=== PATIENT | female | born 1985 | race Caucasian/White ===

== ENCOUNTER 2016-05-02 11:04 | Day surgery (SDC) | payer BC ==
[2016-05-02] VITALS (18 sets, daily range): BP systolic 107–131; BP diastolic 60–84; PULSE 72–98; RESP 14–20; TEMP 97.9–98.4; O2SAT 93–100; Ht 172.7 cm; Wt 119.0 kg
[~2016-05-02] VITALS: Ht 172.7 cm; Wt 119.0 kg
[~2016-05-02 11:04] MED LIST: ERTAPENEM 1 G in NORMAL SALINE 100 ML IV ONE; LIDOCAINE 1% (10mg/ml) 2ml SDV INJ ONE; LR 1,000 ML IV SCH
--- NOTE | 2016-05-02 12:37 | ANESPREOP ---
Anesthesia Record Date and Time DATE: 05/02/16 TIME: 12:35 Proposed Surgical Procedure ROBOTIC LAP JOSE J Allergies: Coded Allergies: No Known Allergies (Unverified , 05/02/16) Ht/Wt/BMI Height: 5 ' 8.00 " Weight: 119.000 kg BMI: 39.9 kg/m2 Medications Inpatient Medications Current Medications Medications (Trade) Dose Ordered Sig/Keren Start Time Stop Time Status Last Admin Dose Admin Lactated Ringer's (Lactated Ringers) 1,000 ml @ 30 mls/hr Q24H 05/02/16 07:00 No Active Prescriptions or Reported Meds Currently on Beta Bailey: No Medical/Surgical History Anesthesia PMH: Reports: Asthma ( A CHILD), Pneumonia ( HX OF LAST 2010), Reflux, Denies: *Angina, *Diabetes, *Dyspnea, *Hypertension, *ME, Anesthesia Reactions (NO AIRWAY ISSUES-N&V), Arthritis, CHF, COPD, CVA/Stroke/TIA, Cancer, Cardiac Arrythmia, Clotting Problems, Glaucoma, Hepatitis, Hiatal Hernia, Malignant Hyperthermia, Pacemaker, Renal Disease, Seizures, Sleep Apnea, Thyroid Disease, Tuberculosis Smoking Status: Current every day smoker Has pt. smoked today?: No Use Chewing Tobacco?: No Substance Use Type: does not use Alcohol Intake: none Last Drink: hours (ago) (8) HX of Last Menstrual Period: APRIL 2016 Past Surgical History Orthopedic Surgeries: No Abdominal Surgeries: No Genitourinary Surgeries: No Cardiac Surgeries: No Endocrine Surgeries: No Reproductive Surgeries: Yes - Neurological Surgeries: No Ear Surgeries: No Nose Surgeries: No Throat Surgeries: Yes Other Surgeries: Yes - LYMPH NODES REMOVED FROM AROUND THYROID Family Hx of Anesthesia Advers: other (slow to wake, nausea) Hx of Motion Sickness: Yes Pertinent Findings Test 05/02/16 11:14 Urine Test Negative (NEGATIVE) Physical Exam Respiratory: Lungs clear Cardiovascular: FOUND Regular rate, rhythm Airway Assessment Mallampati Score: II TMD: 3 Fingerbreadths Neck Extension: Good Overall Assessment: May Be Diff Mask Vent., May Be Diff Intubation ASA: 2 Plan Anesthesia Plan: GETA Discussion Discussed risks/options/alternatives of anesthesia and questions answered. Patient consents. Nursing pain assessment noted. Present: Family Member, Parent Attestation Statement Prior to the delivery of any anesthetic medication, I examined the patient, developed the plan, obtained the patient's consent and discussed the risk and benefits of the procedure with the patient/guardian. JOSÉ CARTY CRNA May 02, 2016 12:37
[2016-05-02] MEDS ORDERED: SCOPOLAMINE 1.5 MG PATCH TD ONE (12:45)
[2016-05-02] MEDS ORDERED: BUPIVACAINE 0.25%/EPI 1:200,000 30ml SDV ONE (12:46)
[2016-05-02] MEDS ORDERED: SALINE FLUSH 10ml SYRINGE ONE (12:51)
[2016-05-02] MEDS ORDERED: DEXAMETHASONE 4mg/ml - 1ml INJECTION ONE (12:52)
[2016-05-02] MEDS ORDERED: ONDANSETRON 4mg/2ml INJECTION ONE ×2 (12:52→14:03)
[2016-05-02] MEDS ORDERED: ROCURONIUM 50mg/5ml INJECTION IV ONE (12:54)
[2016-05-02] MEDS ORDERED: LIDOCAINE (2%) 100 MG/5 ML PF SYRINGE IV ONE (12:54)
[2016-05-02] MEDS ORDERED: FENTANYL 100mcg/2ml INJECTION ONE ×2 (13:09→14:01)
[2016-05-02] MEDS ORDERED: MIDAZOLAM 2mg/2ml INJECTION ONE (13:09)
[2016-05-02] MEDS ORDERED: KETAMINE 500mg/10ml INJECTION ONE (13:09)
[2016-05-02] MEDS ORDERED: METOCLOPRAMIDE 10mg/2ml INJECTION ONE (14:04)
[2016-05-02] MEDS ORDERED: NEOSTIGMINE 10mg/10ml INJECTION ONE (14:13)
[2016-05-02] MEDS ORDERED: GLYCOPYRROLATE 0.4mg/2ml INJECTION ONE (14:13)
[2016-05-02] MEDS ORDERED: LR 1,000 ML IV SCH (14:20)
--- NOTE | 2016-05-02 14:23 | GSPOSTPN ---
Procedure Procedure Date: May 02, 2016 Surgeon: Jim Assisting Surgeon: Reed Patiño Anesthesia: Local, GETA ASA: 2 Procedure Robotic assisted laparoscopic cholecystectomy with Firefly imaging GS Diagnosis Postop Diagnosis Biliary dyskinesia Complications Complications Estimated Blood Loss See Anesthesia Record. Vital Signs See Anesthesia and PACU record. THI PATIÑO APRN, ANGÉLICAS May 02, 2016 14:23
[2016-05-02] MEDS ORDERED: IBUP-2067 PO (14:26)
[2016-05-02] MEDS ORDERED: HYDR-4246 PO (14:26)
[2016-05-02] MEDS ORDERED: MORPHINE SULFATE 4 MG SYRINGE IV PRN (14:30)
[2016-05-02] MEDS ORDERED: KETOROLAC 30mg/ml INJECTION IV PRN (14:30)
[2016-05-02] MEDS ORDERED: HYDROCODONE/APAP 5 mg/325 mg TABLET PO PRN (14:30)
[2016-05-02] MEDS ORDERED: METOCLOPRAMIDE 10mg/2ml INJECTION IV PRN (14:30)
[2016-05-02] MEDS ORDERED: IBUPROFEN 600 MG TABLET PO PRN (14:30)
[2016-05-02] MEDS ORDERED: ONDANSETRON 4mg/2ml INJECTION IV PRN (14:30)
--- NOTE | 2016-05-02 15:15 | NUR ---
ADMISSION PATIENT ADMITTED TO ROOM 134 AT THIS TIME VIA CART AND PACU STAFF. PATIENT ABLE TO TRANSFER SELF FROM CART TO SURGICAL UNIT. PATIENT A/OX3. DENIES PAIN, N/V, CHEST PAIN, AND SOA. INCISIONS CLEAN, DRY, INTACT AND COVERED WITH DERMABOND. BED IN THE LOWEST POSITION, CALL LIGHT WITHIN REACH, SIDE RAILS UPX2, AND BED ALARM ON. WILL CONTINUE TO MONITOR.
--- NOTE | 2016-05-02 18:10 | NUR ---
DISCHARGE PT DISCHARGED TO HOME AT THIS TIME IN THE COMPANY OF AN ADULT. PT AMBULATED TO THE ER ENTRANCE WITH THE SUPERVISION OF STAFF. DISCHARGE INSTRUCTION INCLUDING DIET, ACTIVITY, MEDICATIONS, FOLLOW UP APPOINTMENT, REPORTABLE S/S AND DI FOR CHOLECYSTECTOMY GIVEN AND REVIEWED WITH PATIENT. PT VERBALIZED UNDERSTANDING OF THESE INSTRUCTIONS AND HAD NO FURTHER QUESTIONS. IVL DISCONTINUED. ARMBAND REMOVED. PERSONAL BELONGINGS RETURNED.
--- NOTE | 2016-05-03 11:27 | OPNOTEF ---
DATE OF SERVICE 05/02/2016 SURGEON Jas Fernandez MD ENVIRONMENT[employer]ORATION PLANNER Reed Patiño APRN PREOPERATIVE DIAGNOSIS Biliary dyskinesia. POSTOPERATIVE DIAGNOSIS Biliary dyskinesia. PROCEDURE Robotic-assisted laparoscopic cholecystectomy with use of Firefly biliary imaging. ANESTHESIA General endotracheal. EBL/FLUIDS Please see chart. BRIEF HISTORY/INDICATIONS Mrs. Shultz is a 30-year-old female whom I recently saw in my office a result of her history for intermittent abdominal pain. The patient was found to have abnormal hepatobiliary scan revealing a decreased ejection fraction. It was felt the patient's abdominal pain was a result of biliary dyskinesia. It was therefore recommended to the patient that she undergo surgical intervention. Patient presents today to undergo robotic-assisted laparoscopic cholecystectomy. For completeness please refer to notes included in the patient's chart. FINDINGS Upon laparoscopy the liver edge was smooth without nodularities. Gallbladder itself was not markedly abnormal. The small bowel, colon, peritoneum which were visualized were within normal limits. DESCRIPTION OF PROCEDURE After informed consent was obtained the patient was brought to the operative suite and placed on the table in supine fashion. The abdomen was prepped and draped in sterile fashion. Formal timeout was then completed. 0.25% Marcaine with epinephrine was injected just beneath the level of the umbilicus. A 2-cm curved incision was then made through the area of analgesia. Dissection was carried down to the deep subcuticular tissues to the underlying fascia. Fascia was then grasped with two Vickie clamps and retracted anteriorly. A 1-cm incision was made between the two Vickie clamps. Hemostat was then introduced into the fascial incision and gently spread. U-stitch was placed with 0-Vicryl through the fascial opening. A 12-mm port was then placed through the fascial opening and pneumoperitoneum was established to a patient pressure of 15 mmHg utilizing carbon dioxide. Next, two additional 8-mm ports were placed within the right upper quadrant and left lower quadrant as well as an additional 5-mm assist port through the right lateral abdominal wall. Each port site was preinjected with 0.25% Marcaine and placed under direct visualization. The abdominal cavity was explored via the laparoscope. Findings were as noted above. Next, the fundus of the gallbladder was grasped by my sales support assistant and retracted in a cephalad fashion. An additional grasping pean was placed upon the infundibular portion of the gallbladder and retracted in a lateral and slightly caudad fashion to provide exposure to the triangle of Calot. Dissection was begun high upon the infundibulum of the gallbladder and dissection was continued until the critical view of safety had been obtained and the only remaining structures coming forth from the infundibulum of the gallbladder were that of the cystic duct and cystic artery. Firefly biliary imaging was performed during the dissection of the triangle of Calot which did aid in the identification of the cystic duct. The cystic duct did fluoresce quite well. The posterior aspect of the infundibulum was completely freed from the underlying liver bed fossa. Once the critical view of safety had been obtained, a single Hem-o-cherelle clip was placed upon the cystic artery adjacent to the gallbladder itself. An additional Hem-o-Cherelle clip was placed proximally. An additional Hem-o-Cherelle clip was placed upon the cystic duct adjacent to the infundibulum of the gallbladder. An additional Hem-o-Cherelle clip was placed proximally. The cystic duct and cystic artery were divided between the two Hem-o-Cherelle clips. The gallbladder was begun to be dissected off the liver bed fossa. About snf up on the gallbladder fossa the patient was found to have a somewhat aberrant small artery entering into the posterior aspect of the gallbladder. A small amount of bleeding began to occur. This vessel was dissected out and a small Hem-o-Cherelle clip as well as an additional small metallic clip was placed upon this bleeding vessel. This small aberrant vessel was then divided against the gallbladder wall once the clips had been placed just proximally adjacent to the gallbladder fossa. The gallbladder was continued to be dissected off the remainder liver bed fossa without difficulty. Next, irrigation was performed and the gallbladder fossa was found to be completely hemostatic in nature. The previously placed Hem-o-Cherelle clips upon the cystic duct and cystic artery remained to be intact. There was no evidence of bleeding from this small aberrant vessel along the mid portion of the gallbladder fossa out laterally. All irrigant was suctioned until clear. The robot was undocked. The gallbladder was then removed utilizing a laparoscopic retrieval bag through the infraumbilical port site. Pneumoperitoneum was released. Pneumoperitoneum was reestablished and the liver was retracted upward with a handheld 5-mm grasper. Gallbladder fossa was again inspected and found to be completely hemostatic. No evidence for bleeding was present. Remaining ports were removed under visualization. Pneumoperitoneum was then once again released and the remaining camera port was removed. Previously placed U-stitch was then secured imbricating the fascia at the infraumbilical port site. All skin incisions were closed in a subcuticular fashion with 4-0 Monocryl. Dermabond was placed overlying the incisions. Patient is in the process of awakening from her anesthetic and will be sent back to the recovery room once deemed in stable condition. Additionally, it should be noted that Reed Patiño APRN, was present throughout the entire case and played a pivotal role in providing assistance and exposure during the course of the procedure. VALENTIN
--- NOTE | 2016-05-06 13:25 | NUR ---
CM THIS CM PLACED FOLLOW UP DISCHARGE CALL, PT REPORTS NO CONCERNS NO NEEDS.
== END 2016-05-02 18:10 | disposition home or self-care (01) ==
LOC: SRG 11:04 → SCU 11:04
PROVIDERS: ATTEND Surgery
DX: K81.1 Chronic cholecystitis (principal); K82.8 Other specified diseases of gallbladder; I87.2 Venous insufficiency (chronic) (peripheral); F17.210 Nicotine dependence, cigarettes, uncomplicated; Z79.1 Long term (current) use of non-steroidal anti-inflammatories (NSAID)
CPT/HCPCS: 47562; 81025; 94664; J0330; J1100; J1335; J2250; J2405; J2710; J2765; J3010; J7030; J7050; J7120; S0020; S2900

== ENCOUNTER 2016-05-07 15:58 | Emergency (ER) | payer BC ==
[~2016-05-07] VITALS: Ht 172.7 cm; Wt 120.8 kg
[~2016-05-07 15:58] MED LIST changes: -ERTAPENEM 1 G in NORMAL SALINE 100 ML IV ONE; +HYDR-4246 PO; +IBUP-2067 PO; -LIDOCAINE 1% (10mg/ml) 2ml SDV INJ ONE; -LR 1,000 ML IV SCH
--- OUTSIDE RECORDS SUMMARY | 2016-05-07 16:01 | XMS REPORT | Continuity of Care Document ---
Author Author [facility] Organization [facility] Address Unknown Phone Unavailable Support Name Relationship Address Phone YEHUDA BERRY MD Caregiver [address] [place] [address] [place] [address] Unavailable ROMIE SIMPSON FACS, MD Caregiver [address] [place] [address] [place] [address] Unavailable GARETT JOHNSTON Next Of Kin [address] [place] [address] Insurance Providers Guarantor Elsie Johnston Address [address] [place] [address] Email [email or web address] [facility] Policy Number [id number] Subscriber's Name Elsie Johnston Relationship 18 Self Group Number [id number] Advance Directives Directive Response Recorded Date/Time Ordered Resuscitation Status Full Code 05/01/16 4:15pm Resuscitation Documents on File No 05/02/16 11:43am DPOA for Healthcare Only No 05/02/16 11:43am Living Will No 05/02/16 11:43am Problems Active Problems Medical Problem Onset Date Status Cellulitis and abscess of foot Unknown Acute Cellulitis and abscess of foot Unknown Acute Complete spontaneous Unknown Acute Miscarriage Unknown Acute Tinea pedis Unknown Acute Medications Current Home Medications Medication Dose Units Route Directions Days Qty Instructions Start Date Hydrocodone/Acetaminophen ([place] 5-325 Tablet) 5-325 Tablet 1-2 Tab Oral Every 5 Hours as needed for Pain 40 Tablet 05/02/16 Ibuprofen 600 Mg Tablet 600 Mg Oral Every 6 Hours as needed for Pain 10 Days 40 Tablet 05/02/16 Past Home Medications Medication Directions Ordered Status Cephalexin (Keflex) 500 Mg Capsule, 1 Cap Oral Three Times A Day 03/20/14 Discontinued Miconazole Nitrate 30 Gm Cream..g., 0 Topically Three Times A Day 03/20/14 Discontinued Naproxen Sodium (Aleve) 220 Mg Tablet, 440 Mg Oral Twice Daily With Meals 04/02 Discontinued Social History Social History Problem Response Recorded Date/Time Onset Date Status Reason for Hospitalization LAPARASCOPIC CHOLECYSTECTOMY 05/02/2016 3:54pm Not Applicable Not Applicable Chewing Tobacco Status No 05/01/2016 1:10pm Not Applicable Not Applicable Hx Substance Use No 05/01/2016 1:10pm Not Applicable Not Applicable Hx Alcohol Use No 05/01/2016 1:10pm Not Applicable Not Applicable Has the pt used tobacco in the last 12 months Yes 05/01/2016 1:10pm Not Applicable Not Applicable Tobacco Usage none 03/20/2014 5:57am Not Applicable Not Applicable Query Response Start Date Stop Date Smoking Status Current every day smoker Hospital Discharge Instructions Instructions: Care Instructions: I was in the hospital because (patient own words): galbladder removal Discharge Diet: regular Discharge Activity: Do not drive, operate machinery for 24 hours after surgery or while taking pain medication. No lifting more than 25 pounds for 4 weeks. Follow Up Appointments: Follow up with Alicia Patiño APRN/Dr. Simpson on May 20 at 10:15 am Pending Lab / Results: Will review at f/u apt Expected Signs/Symptoms: tenderness at trocar/inicision sites, bruising at incision sites Notify Physician If: 1. Call your surgeon if you are having problems relating to your surgery at [phone]. 2. Problems such as: Temp above 101.5 degrees You develop redness, excessive swelling of the incision, increasing pain or excessive foul smelling drainage. 3. If the office is closed, call [facility] at [phone] and have your Surgeon paged. During Business Hours:: Call your surgeon at at [phone]. After Business Hours:: If the office is closed, call [facility] at [phone] and have your Surgeon paged. Pain Management/Treatment: Follow prescriptions as prescribed Wound/Incision Care: Leave incision open to air. Do not rub or pick off the glue. May shower. Condition at time of discharge: Good Plan of Care Discharge Date 05/02/16 6:10pm Instructions/Education Provided Laparoscopic Cholecystectomy (DC) Prescriptions See Medication Section Functional Status Query Response Date Recorded Mobility Status Ambulatory May 02, 2016 3:23pm Assistive Devices None May 02, 2016 3:23pm Activity Limitations None May 02, 2016 3:23pm Feeding Ability Independent May 02, 2016 3:23pm Toileting Ability Independent May 02, 2016 3:23pm Grooming Ability Independent May 02, 2016 3:23pm Dressing Ability Independent May 02, 2016 3:23pm Driving Ability Independent May 02, 2016 3:23pm Housework Ability Independent May 02, 2016 3:23pm Meal Preparation Ability Independent May 02, 2016 3:23pm Stair Climbing Ability Independent May 02, 2016 3:23pm Ability to complete ADL's impeded by No change May 02, 2016 3:23pm Cognitive/Perceptual Impairments None May 02, 2016 3:23pm Preferred Method of Learning Hands on May 02, 2016 3:23pm Allergies, Adverse Reactions, Alerts No known allergies. Immunizations Query Response on File Recorded Date/Time Hx Influenza Vaccination No 05/01/16 1:10pm Hx Pneumococcal Vaccination Y 2011 05/01/16 1:10pm Hx Influenza Vaccination No 05/01/16 1:10pm Vital Signs Acute Vital Signs Vital Response Date/Time Temperature (Fahrenheit) 98.0 deg F (96.8 - 99.1) 05/02/2016 3:21pm Temperature (Calculated Celsius) 36.16725 degrees C (36.0 - 37.3) 05/02/2016 3:21pm Temperature Source Oral 05/02/2016 3:21pm Pulse Rate (adult) 82 bpm (60 - 100) 05/02/2016 5:21pm Respiratory Rate 16 breaths/min (10 - 20) 05/02/2016 5:21pm O2 Sat by Pulse Oximetry 96 % (90 - 100) 05/02/2016 5:21pm Oxygen Delivery Method Room Air 05/02/2016 5:21pm Oxygen Delivery Method Room Air 05/02/2016 4:40pm Oxygen Flow Rate 2.00 L/min 05/02/2016 2:55pm Blood Pressure 113/67 mm Hg 05/02/2016 5:21pm Blood Pressure Source Automatic Cuff 05/02/2016 5:21pm Height (Feet) 5 feet 05/02/2016 11:06am Height (Inches) 8.00 inches 05/02/2016 11:06am Weight (Kilograms) 119.000 kg 05/02/2016 11:06am Body Mass Index (BMI) 39.9 05/02/2016 11:06am Results No known relevant diagnostic tests, laboratory data and/or discharge summary. Procedures Procedure Status Date Provider(s) Hepatobil syst image w/drug Completed 03/27/16 Chorionic gonadotropin assay Completed 03/27/16"TECHNETIUM TC-99M MEBROFENIN, DIAGNOSTIC, PER STUDY D Completed "INJECTION, SINCALIDE, 5 MICROGRAMS" Completed 03/27/16 Robot-assisted cholecystectomy Completed 05/02/16 ROMIE SIMPSON MD, FACS , CWS Encounters Encounter Location Arrival/Admit Date Discharge/Depart Date Attending Provider Departed Surgical Day Care [facility] 05/02/16 11:04am 05/02/16 6 :10pm ROMIE SIMPSON FACS CWS MD Registered Clinic [facility] 03/27/16 12:24pm JUAN TRIANA
[2016-05-07 16:09] VITALS: Ht 172.7 cm; Wt 120.8 kg
--- NOTE | 2016-05-07 16:21 | NUR ---
PROVIDER DR. CURRAN AT BEDSIDE FOR EXAM.
[2016-05-07] MEDS ORDERED: NO ROUTINE MEDS (16:27)
--- NOTE | 2016-05-07 16:29 | ERPDOC ---
Departure Disposition Decision Date: May 07, 2016 Disposition Decision Time: 18:30 Disposition: 01 DISCHARGED HOME, SELF-CARE Impression Impression Impression: Primary Impression: Postoperative pain Severity: Moderate Condition: Improved Seen By: Physician only Referrals: YEHUDA BERRY MD (Family) Patient Instructions: How to Stop Smoking (ED) Problems/Meds/Labs Reviewed?: Yes Medications reviewed and manag: Yes Additional Instructions: Please follow up with your surgeon next week. Follow up with her primary care provider sooner if pain recurs. Follow up care ordered?: Yes Mental Status: Alert, Oriented HPI - Back Pain General Chief Complaint: Back Pain or Injury Stated Complaint: POST SURGERY ISSUES Time Seen by Provider: 16:20 HPI - Back Pain Initial Comments 30-year-old female presents with shortness of breath, status post cholecystectomy. Surgery was done on Thursday and she had some right upper quadrant abdominal pain postop, but no lung pain. In the last 24 hours she has developed pain with deep breathing and a sensation of shortness of breath. She' s had no fever, no chills. No dysuria or hesitancy or urgency. No abnormal odor to urine. She has had a slight cough develop in the last day. Allergies: Coded Allergies: No Known Allergies (Unverified , 05/07/16) Past History Past Medical History Pt denies signifigant PMH Surgical History Reproductive/: Family History Family PMH: FOUND: [place], diabetes, hypertension Vaccines Hx Influenza Vaccination: No Hx Pneumococcal Vaccination: Yes (2010) Social History Smoking Status: Current every day smoker Does patient use chewing tobac: No Substance Use Type: does not use Last Drink: hours (ago) Sexuality: male partner Record Review Pertinent history updated: Yes Review of Systems Pulmonary Respiratory: see HPI GI Upper Abdomen: see HPI Physical Exam General General Nourishment: well nourished, well developed, appears stated age General Body Habitus: well groomed Vitals and Pain First Documented Vital Signs Date Time Temp Pulse Resp B/P Pulse Ox O2 Delivery O2 Flow Rate FiO2 05/07/16 16:09 97.9 98 16 145/79 100 Room Air Weight: Kilograms: 120.800 Height (feet): 5 Height (inches): 8.00 Triage Pain Scale: Normal Exams: Neck: Full range of motion, without adenopathy, JVD, bruits or thyromegaly Chest/Resp: Clear all feliciano, with good airflow, and symmetry bilaterally CV: Regular rate and rhythm, without murmur or gallop, Pulses 2+ all extremities, capillary refill, <2 seconds all ext., no pedal edema noted Neurologic: Patient is alert, and oriented, cranial nerves, motor/sensory/ cerebellar, exams w/o gross deficits, to observation Psychiatric: Patient exhibits, appropriate attention, emotion and affect Abdomen (brief) Comments Bowel sounds 4, abdomen soft, truly nontender except immediately over surgical site. No signs of cellulitis at wound site. Integumentary (brief) Integumentary Brief: FOUND: pink, warm Differential Diagnoses Considering: Biliary Colic, Diverticulitis, Ovarian Cyst, Ovarian Abscess, Ovarian Torsion, Pancreatitis, Pneumothorax, Pyelonephritis, UTI, Volvulus Progress Results/Orders Orders Procedure Category Date Status Time Iv Lock (Ed Only) EDM 05/07/16 Transmitted 16:34 Nothing By Mouth (Ed EDM 05/07/16 Transmitted Only) 16:34 Cbc W/Auto LAB 05/07/16 Complete Diff-Reflex Manual 16:34 Cmp - Comprehensive LAB 05/07/16 Complete Metabolic 16:34 Lipase LAB 05/07/16 Complete 16:34 LAB 05/07/16 Complete Qualitative, Urine 16:34 Ua, Dip Wreflex LAB 05/07/16 Complete Microsc & Mental Retardation Aide 16:34 Normal Saline (Normal PHA 05/07/16 Complete Saline Iv) 16:[address] 05/07/16 Taken 16:34 KUB RAD 05/07/16 Taken 16:34 Iohexol (Omnipaque) PHA 05/07/16 Complete 17:11 Normal Saline (Ns) PHA 05/07/16 Complete 17:11 Saline Flush (Iv PHA 05/07/16 Complete Flush) 17:11 Lab Results Laboratory Tests Test 05/07/16 16:54 05/07/16 17:04 White Blood Count 9.6T/MM3 Red Blood Count 5.03M/MM3 Hemoglobin 13.4GM/DL Hematocrit 41.5% Mean Corpuscular Volume 82.5UM3 Mean Corpuscular Hemoglobin 26.6UUG Mean Corpuscular Hemoglobin Concent 32.3GM/DL RDW Standard Deviation 41.3FL Platelet Count 275T/MM3 Mean Platelet Volume 11.0UM3 Immature Granulocyte % (Auto) 0.1% Neutrophils (%) (Auto) 64.6% Lymphocytes (%) (Auto) 27.2% Monocytes (%) (Auto) 5.1% Eosinophils (%) (Auto) 2.8% Basophils (%) (Auto) 0.2% Absolute Immature Granulocyte (auto 0.01T/MM3 Absolute Neutrophils (auto) 6.2T/MM3 Absolute Lymphocytes (auto) 2.6T/MM3 Absolute Monocytes (auto) 0.5T/MM3 Absolute Eosinophils (auto) 0.3T/MM3 Absolute Basophils (auto) 0.0T/MM3 Turbidity < 20 Sodium Level 145MEQ/L Potassium Level 4.3MEQ/L Chloride Level 106MEQ/L Carbon Dioxide Level 26MEQ/L Anion Gap 13MEQ/L Blood Urea Nitrogen 6.0MG/DL Creatinine 0.7MG/DL Glomerular Filtration Rate Calc 98 BUN/Creatinine Ratio 9RATIO Glucose Level 110MG/DL Calculated Osmolality 278MOSM/KG Calcium Level 9.4MG/DL Total Bilirubin 0.40MG/DL Icterus Index < 2 Aspartate Amino Transf (AST/SGOT) 19U/L Alanine Aminotransferase (ALT/SGPT) 33U/L Alkaline Phosphatase 61U/L Total Protein 7.5G/DL Albumin 4.1G/DL Globulin 3.4G/DL Albumin/Globulin Ratio 1.2RATIO Lipase 97U/L Chemistry Specimen Hemolysis 19 Urine Collection Type Voided-not cc-midstr Urine Color Yellow Urine Turbidity Clear Urine pH 6.5 Urine Specific Lohman <=1.005 Urine Protein Negative Urine Glucose (UA) Negative Urine Ketones Negative Urine Blood Negative Urine Nitrite Negative Urine Bilirubin Negative Urine Urobilinogen 0.2EU/DL Urine Leukocyte Esterase Negative Urinalysis Comment Microscopic not ind. Urine Test Negative Medications Current ED Medications Sodium Chloride (Normal Saline IV) 1,000 ml @ 1,000 mls/hr Q1H ONCE IV Last administered on 05/07/16t 17:05; Start 05/07/16 at 16:34; Stop 05/07/16 at 17:33 ; Status DC Iohexol 1 bottle 1 bottle STK-MED ONCE .ROUTE ; Start 05/07/16 at 17:11; Stop at 17:12; Status DC Sodium Chloride (NS) 100 ml @ As Directed STK-MED ONCE .ROUTE ; Start 05/07/16 at 17:11; Stop 05/07/16 at 17:12; Status DC Sodium Chloride (Iv Flush) 10 ml STK-MED ONCE .ROUTE ; Start 05/07/16 at 17:11; Stop 05/07/16 at 17:12; Status DC Progress Progress CT PE is negative, CBC CMP are negative UA is negative. Patient has no signs of acute emergency postop. She is appropriate to discharge home, she does have pain pills at home and does not need any more. We did discuss that this may be something and development that hasn't shown up in which case she'll need to return if her symptoms worsen. She'll follow-up with her surgeon as well when he gets back into town next week or with her primary care provider. MICHAEL CURRAN MD May 07, 2016 16:29
[2016-05-07] MEDS ORDERED: NORMAL SALINE 1,000 ML IV ONE (16:34)
[2016-05-07 17:08] LABS: BASOPHILS % (AUTO) 0.2 % (0-2); EOSINOPHILS # (AUTO) 0.3 T/MM3 (0-0.5); EOSINOPHILS % (AUTO) 2.8 % (0-4); HCT - HEMATOCRIT 41.5 % (36-46); HGB - HEMOGLOBIN 13.4 GM/DL (12-16); IMMATURE GRANULOCYTE # (AUTO) 0.01 T/MM3 (0.00-0.03); IMMATURE GRANULOCYTE % (AUTO) 0.1 % (0.0-0.5); LYMPHOCYTES # (AUTO) 2.6 T/MM3 (1-4.8); LYMPHOCYTES % (AUTO) 27.2 % (23-45); MEAN CORPUSCULAR HGB 26.6 UUG (26-34); MEAN CORPUSCULAR HGB CONC(MCHC 32.3 GM/DL (31-37); MEAN CORPUSCULAR VOLUME 82.5 UM3 (80-100); MONOCYTES # (AUTO) 0.5 T/MM3 (0-0.8); MONOCYTES % (AUTO) 5.1 % (0-9.0); NEUTROPHILS #(AUTO)-ABSOLUTE 6.2 T/MM3 (1.8-7.7); NEUTROPHILS % (AUTO) 64.6 % (33-66); RED BLOOD COUNT 5.03 M/MM3 (4.00-5.20); WBC - WHITE BLOOD COUNT 9.6 T/MM3 (4.5-11.0)
[2016-05-07] MEDS ORDERED: IOHEXOL 350 MG/ML 75ml INJECTION ONE (17:11)
[2016-05-07] MEDS ORDERED: SALINE FLUSH 10ml SYRINGE ONE (17:11)
[2016-05-07] MEDS ORDERED: NORMAL SALINE 100 ML ONE (17:11)
[2016-05-07 17:13] LABS: ALBUMIN 4.1 G/DL (3.5-5.0); ALBUMIN/GLOBULIN RATIO 1.2 RATIO (1.1-2.2); ALKALINE PHOSPHATASE 61 U/L (38-126); ALT (SGPT) 33 U/L (9-52); ANION GAP 13 MEQ/L (5-15); AST (SGOT) 19 U/L (14-36); BUN/CREATININE RATIO 9 RATIO (6-26); CALCIUM 9.4 MG/DL (8.4-10.2); CHLORIDE 106 MEQ/L (98-107); CO2 - CARBON DIOXIDE 26 MEQ/L (22-30); CREATININE 0.7 MG/DL (0.7-1.2); GLOMERULAR FILTRATION RATE 98; GLUCOSE 110 MG/DL (65-110); LIPASE 97 U/L (23-300); POTASSIUM 4.3 MEQ/L (3.6-5); SODIUM 145 MEQ/L (134-144); TOTAL PROTEIN 7.5 G/DL (6.3-8.2)
[2016-05-07 17:14] LABS: BLOOD, URINE NEGATIVE (NEGATIVE); COLOR,URINE YELLOW (YELLOW); LEUKOCYTE ESTERASE ,URINE NEGATIVE (NEGATIVE); NITRITE,URINE NEGATIVE (NEGATIVE); UROBILINOGEN,URINE 0.2 EU/DL (NORMAL)
--- NOTE | 2016-05-07 17:51 | NUR ---
RETURN PT RETURNED FROM RADIOLOGY BY W/C AT THIS TIME.
--- NOTE | 2016-05-07 18:10 | NUR ---
STATUS PT SITTING UP COMFORTABLY IN CART. DENIES NEEDS AT THIS TIME. CALL LIGHT WITHIN REACH, VS STABLE, WILL CONTINUE TO MONITOR.
--- NOTE | 2016-05-07 18:29 | NUR ---
PROVIDER DR. CURRAN AT BEDSIDE TO SPEAK WITH PT.
[2016-05-07 18:44] VITALS: BP 121/71; PULSE 89; RESP 16; TEMP 97.9; O2SAT 100
--- NOTE | 2016-05-07 18:44 | NUR ---
DISCHARGE WRITTEN INSTRUCTIONS REVIEWED AND SENT WITH PT. PT VERBALIZES UNDERSTANDING OF DI, DENIES QUESTIONS. PT AMBULATES OUT OF ER WITH STEADY GAIT AT THIS TIME.
--- NOTE | 2016-05-08 08:36 | DI ---
Indication: ITS.REASON: dyspnea, postop PROCEDURE: CTA PULMONARY EMBOLI: Encounter: Initial Comparison: None Technique: Axial CT pulmonary angiographic phase images were performed through the chest after the administration of intravenous contrast. Coronal and Sagittal MIP reconstructed images were created and reviewed. Automated Exposure Control and Iterative Reconstruction dose reducing techniques were utilized. Contrast: Omnipaque 350 72 mL Findings: Pulmonary arteries: Exam is diagnostic to the subsegmental pulmonary arterial level. No filling defects identified to suggest a pulmonary embolus. Other findings: Lungs are clear. No pleural effusion or pneumothorax. The central airways are patent. No axillary or mediastinal adenopathy. Heart size is normal. No pericardial effusion. The upper abdomen shows no acute findings. Impression: No pulmonary embolus or acute disease process seen. There is a preliminary report by [facility]. .
--- NOTE | 2016-05-08 08:37 | DI ---
Indication: ITS.REASON: abd pain, post op PROCEDURE: KUB: Encounter: Initial Comparison: None Findings: The bowel gas pattern is nonobstructive and nonspecific. Gas is seen in nondilated small and large bowel to the level of the rectum. Moderate stool is seen throughout the colon. The bony structures are grossly unremarkable. Contrast material in the renal collecting system from the patient's recent CT study. Impression: Nonobstructive nonspecific bowel gas pattern. .
== END 2016-05-07 18:44 | disposition home or self-care (01) ==
LOC: ED 15:58
DX: G89.18 Other acute postprocedural pain (principal); R10.11 Right upper quadrant pain; R06.02 Shortness of breath
CPT/HCPCS: 71275; 74000; 80053; 81003; 81025; 83690; 85025; 96360; 99284; J7030; J7050; Q9967

== ENCOUNTER 2017-04-09 04:34 | Observation (INO) ==
[2017-04-09] MEDS ORDERED: SALINE FLUSH 10ml SYRINGE IV PRN (04:46)
[2017-04-09] MEDS ORDERED: LIDOCAINE 1% (10mg/ml) 2mL INJ PF SDV ID ONE (04:46)
[2017-04-09] MEDS ORDERED: CALCIUM GLUCONATE 4.65mEq/10ml INJECTION IV PRN (04:46)
[2017-04-09] MEDS ORDERED: MAGNESIUM SULFATE 6gm PREMIX 6 GM/50 ML BAG IV ONE (04:46)
[2017-04-09] MEDS ORDERED: BETAMETHASONE 30 MG/5 ML INJECTION IM SCH (05:00)
[2017-04-09] MEDS: MAGNESIUM SULFATE DRIP 20 GM/500 ML BAG IV SCH ×2 (05:53→15:45)
[2017-04-09 06:23] VITALS: BP 122/65; PULSE 91; RESP 18; TEMP 97.7; O2SAT 99
[2017-04-09 06:27] VITALS: BMI 41.8
--- NOTE | 2017-04-09 13:12 | Progress Note ---
OB PP Progress Note Free Text - Date Date: 04/09/17 - Progress Note Progress Note: Pt reports feeling well, tolerating MagSO4. FHTs reactive, Cat 1. Plan to continue for 12 hours, repeat ANCS. Q&A
[2017-04-09] MEDS ORDERED: ACETAMINOPHEN 500 MG TABLET PO PRN (13:51)
== END 2017-04-09 18:00 | disposition home or self-care (01) ==
LOC: INF.THER 04:34 → MC 04:34 → SRG 04:34 → MC 04:40 → INF.THER 18:00 → UNDODISOB 18:00 → UNDODEPCLI 04-30 10:30
PROVIDERS: ADMIT Obstetrics & Gynecology; ATTEND Obstetrics & Gynecology

== ENCOUNTER 2017-06-18 10:00 | Inpatient (IN) ==
[2017-06-18] MEDS ORDERED: FAMOTIDINE PB 20 MG/50 ML BAG IV ONE (10:11)
[2017-06-18] MEDS ORDERED: CITRIC ACID/SODIUM CITRATE 30ml PO ONE (10:11)
--- OUTSIDE RECORDS SUMMARY | 2017-06-18 10:14 | External Medical Summary | Continuity of Care Document ---
:1985 Author Organization [facility] Address [address] [place], [place] [id number] Phone Care Team Providers Name Role Phone Reji Wang MD, FAAFP Unavailable Unavailable Allergies, Adverse Reactions, Alerts Substance Reaction Severity Status No Known Drug Allergies Unknown Active Medications Medication Instructions Dosage Effective Dates Status Comments (start - stop) Aspir-81 81 mg take 1 tablet by oral 81 MG - Active tablet,delayed route every day release (unknown - Active strength) Tylenol 325 mg tablet take 3 tablet by ORAL 975 MG - Active route every 4 days as needed Problems Condition Effective Dates (start - stop) Clinical Status Suprvsn of preg w history of pre-term - labor, third trimester Gestational htn w/o significant - proteinuria, third trimester Maternal care for cervical - incompetence, third trimester 35 weeks gestation of - Irregular Menses Encntr for rn gynecology exam (general) - (routine) w abnormal findings Encntr for rn gynecology exam (general) (routine) w/o abn findings Pap Smear Screening, Cervix - Encounter for test, result - negative Supervision of other high risk - pregnancies, second trimester Gestatnl htn w/o significant - proteinuria, second trimester Previous Low Transverse - 20 weeks gestation of - Suprvsn of preg w history of pre-term - labor, third trimester Supervision of other high risk - pregnancies, third trimester Previous Low Transverse - Maternal care for cervical - incompetence, third trimester Nicotine dependence, other tobacco product, in remission Complete or unsp spontaneous without complication Encntr for rn gynecology exam (general) - (routine) w abnormal findings Pap Smear Screening, Cervix Pap Smear Screening, Cervix Encounter for test, result - positive Carbuncle, unspecified - Supervision of other high risk - pregnancies, second trimester 21 weeks gestation of - Secondary amenorrhea Encounter for test, result positive Secondary oligomenorrhea Recurrent loss Encounter for test, result - positive Irregular Menses Recurrent loss - Complete or unsp spontaneous without complication Complete or unsp spontaneous - without complication Complete or unsp spontaneous - without complication Suprvsn of preg w history of pre-term - labor, first trimester Supervision of other high risk - pregnancies, first trimester Previous Low Transverse - 13 weeks gestation of - Suprvsn of preg w history of pre-term - labor, first trimester Supervision of other high risk - pregnancies, first trimester Previous Low Transverse - Encntr screen for infections w sexl - mode of transmiss Encounter for screening for oth - infec/parastc diseases Encounter for screening of - mother 9 weeks gestation of - Suprvsn of preg w history of pre-term - labor, second tri Supervision of other high risk - pregnancies, second trimester Previous Low Transverse - 20 weeks gestation of - Suprvsn of preg w history of pre-term - labor, second tri Supervision of other high risk - pregnancies, second trimester Previous Low Transverse - 22 weeks gestation of - Suprvsn of preg w history of pre-term - labor, second tri Supervision of other high risk - pregnancies, second trimester Gestatnl htn w/o significant - proteinuria, second trimester Previous Low Transverse - Encounter for suprvsn of normal - , second trimester 26 weeks gestation of - Suprvsn of preg w history of pre-term - labor, second tri Suprvsn of preg w history of pre-term - labor, second tri Suprvsn of preg w history of pre-term - labor, second tri Suprvsn of preg w history of pre-term - labor, second tri Supervision of other high risk - pregnancies, second trimester Previous Low Transverse - 16 weeks gestation of - Suprvsn of preg w history of pre-term - labor, second tri Suprvsn of preg w history of pre-term - labor, second tri Suprvsn of preg w history of pre-term - labor, second tri Suprvsn of preg w history of pre-term - labor, second tri Suprvsn of preg w history of pre-term - labor, second tri Suprvsn of preg w history of pre-term - labor, third trimester Supervision of other high risk - pregnancies, third trimester Previous Low Transverse - Maternal care for cervical - incompetence, third trimester Suprvsn of preg w history of pre-term - labor, third trimester Supervision of other high risk - pregnancies, third trimester Previous Low Transverse - 35 weeks gestation of - Suprvsn of preg w history of pre-term - labor, third trimester Supervision of other high risk - pregnancies, third trimester Previous Low Transverse - Maternal care for cervical - incompetence, third trimester Suprvsn of preg w history of pre-term - labor, third trimester Supervision of other high risk - pregnancies, third trimester Previous Low Transverse - 28 weeks gestation of - Suprvsn of preg w history of pre-term - labor, third trimester Previous Low Transverse - Maternal care for cervical - incompetence, third trimester labor without delivery, third - trimester Suprvsn of preg w history of pre-term - labor, third trimester Supervision of other high risk - pregnancies, third trimester Previous Low Transverse - 31 weeks gestation of - Suprvsn of preg w history of pre-term - labor, third trimester Suprvsn of preg w history of pre-term - labor, third trimester Supervision of other high risk - pregnancies, third trimester Previous Low Transverse - Maternal care for cervical - incompetence, third trimester Suprvsn of preg w history of pre-term - labor, third trimester Gestational htn w/o significant - proteinuria, third trimester Previous Low Transverse - 28 weeks gestation of - Suprvsn of preg w history of pre-term - labor, third trimester 32 weeks gestation of - Suprvsn of preg w history of pre-term - labor, third trimester Supervision of other high risk - pregnancies, third trimester Previous Low Transverse - 37 weeks gestation of - Supervision of other high risk - pregnancies, second trimester Previous Low Transverse - Frequency of micturition - 27 weeks gestation of - Supervision of other high risk - pregnancies, third trimester Previous Low Transverse - Maternal care for cervical - incompetence, third trimester 34 weeks gestation of - Tobacco Abuse - Active Intramural Uterine Leiomyoma - Active Procedures Procedure Date TRANSVAGINAL US, OBSTETRIC Ultrasnd preg uterus, flwup/repeat Results Test Name Date and Time Measure Units Reference Range Abnormal Flag Comments Unknown Advance Directives Directive Yes / No Effective Date File Name Unknown Encounters Encounter Practice Location Reason(s) Diagnoses Date Provider Care Team Description For Visit Members Shahida De Luna of preg w May-2 Sha Referring In Womens history of 5-201 Fang. Provider: Chaparrita BALDERAS, pre-term labor, [address] [facility] [place], [address], [facility] [place] of other high , [facility] Dr ROTH, risk pregnancies, 120, Benji 120, [id number], third Khanh Cassidy, trimesterPrevious [place] ROTH, tel:[phone] Low Transverse [phone]. [id number] C-Mgypzza33 weeks , [place]. tel:+316 gestation of tel:[phone] [facility] De Luna of preg w May- Sha Referring In Womens history of 8-201 Fang. Provider: Chaparrita BALDERAS, pre-term labor, [address] third [facility] [place], [address], [facility], ion of other high Dr [facility] Dr ROTH, risk pregnancies, 120, Benji 120, [id number], third Khanh Cassidy, trimesterPrevious [place] ROTH, tel:[phone] Low Transverse [phone]. [id number] C-SectionMaternal , [place]. tel:+316 care for cervical tel: [phone] incompetence, [phone] third trimester [facility] De Luna of preg w May- Sha Referring In Womens history of 1-201 Fang. Provider: Chaparrita BALDERAS, pre-term labor, [address] third [facility] [place], [address], [facility], ion of other high Dr [facility] Dr ROTH, risk pregnancies, 120, Benji 120, [id number], third Khanh Cassidy, trimesterPrevious [place], tel: Low Transverse [phone]. C-Gzzanwh10 weeks , [place]. tel: gestation of tel: [phone] [facility] Suprvsn of preg w Apr-1 Sha Referring In Womens Ultrasound history of 1-201 Fang. Provider: Health PA, pre-term labor, [address] third [facility] [place], 700 1522, trimesterGestatio [facility], nal htn w/o , [facility] Dr ROTH, significant 120, Benji 120, [id number], proteinuria, Khanh Cassidy, [place] third [place], tel: trimesterMaternal [phone]. care for cervical , [place]. tel: incompetence, tel: [phone] third [id number] weeks gestation of [facility] Supervision of Apr-0 Sha Referring In Womens other high risk 4-201 Fang. Provider: Health PA, pregnancies, [address] third [facility] [place], 700 1522, trimesterPrevious [facility], Low Transverse , [facility] Dr ROTH, C-SectionMaternal 120, Benji 120, [id number], care for cervical Khanh Cassidy, incompetence, [place] ROTH, tel: third [id number] [phone]. weeks gestation , [place]. tel: of tel: [phone] [facility] Suprfranciscon of preg w Mar-2 Sha Referring In Womens history of 8-201 Fang. Provider: Health PA, pre-term labor, [address] third [facility] [place], 700 1522, trimesterSupervis [facility] [place], ion of other high , [facility] Dr ROTH, risk pregnancies, 120, Benji 120, [id number], third Khanh Cassidy, trimesterPrevious [place], tel: Low Transverse [phone]. C-SectionMaternal , [place]. tel: care for cervical tel: [phone] incompetence, [phone] third trimester [facility] Suprvsn of preg w Mar-2 Sha Referring In Womens history of 2-201 Fang. Provider: Chaparrita BALDERAS, pre-term labor, [address] third trimester [facility] [place], [address], [place] [address], [facility] Dr ROTH, 120, Benji 120, [id number], Khanh Cassidy, [facility], [place], tel: [phone]. , [place]. tel: tel: [phone] [facility] Suprfranciscon of preg w Mar-2 Sha Referring In Womens history of 1-201 Fang. Provider: Chaparrita BALDERAS, pre-term labor, 8 [address] third [facility] [place], 700 1522, trimesterSupervis [facility] [place], ion of other high , [facility] Dr ROTH, risk pregnancies, 120, Benji 120, [id number], third Khanh Cassidy, trimesterPrevious [place], [place], tel: Low Transverse [phone]. C-SectionMaternal , [place]. tel: care for cervical tel: [phone] incompetence, [phone] third trimester [facility] Suprvsn of preg w Mar-2 Sha Referring In Womens Ultrasound history of 1-201 Fang. Provider: Chaparrita BALDERAS, pre-term labor, 8 [address] third [facility] [place], 700 1522, weeks gestation [facility] [place], of , [facility] Dr ROTH, 120, Benji 120, [id number], Khanh Cassidy, [place], [place], tel: [phone]. , [place]. tel: tel: [phone] [facility] Suprvsn of preg w Mar-1 Sha Referring In Womens history of 4-201 Fang. Provider: Chaparrita BALDERAS, pre-term labor, 8 [address] third [facility] [place], 700 1522, [facility], ion of other high , [facility] Dr ROTH, risk pregnancies, 120, Benji 120, [id number], third Khanh Cassidy, [place] trimesterPrevious [place] ROTH, tel: Low Transverse [phone]. C-Iyjqavz54 weeks , [place]. tel: gestation of tel: [phone] [facility] Suprvsn of preg w Mar-0 Sha Referring In Womens history of 7-201 Fang. Provider: Health ANDREY, pre-term labor, 8 [address] third [facility] [place], 700 1522, [facility], ion of other high , [facility] Dr ROTH, risk pregnancies, 120, Benji 120, [id number], third Khanh Cassidy, [place] trimesterPrevious [place] ROTH, tel: Low Transverse [phone]. C-SectionMaternal , [place]. tel: care for cervical tel: [phone] incompetence, [phone] third trimester [facility] Suprvsn of preg w Feb-2 Sha Referring In Womens history of 8-201 Fang. Provider: Chaparrita BALDERAS, pre-term labor, 8 [address] third [facility] [place], 700 1522, trimesterPrevious [facility] [place], Low Transverse , [facility] Dr ROTH, C-SectionMaternal 120, Benji 120, [id number], care for cervical Khanh Cassidy, [place] incompetence, [place] ROTH, tel: third [phone]. trimesterPreterm , [place]. tel: labor without tel: [phone] delivery, third [phone] trimester [facility] Suprvsn of preg w Feb-2 Sha Referring In Womens history of 1-201 Fang. Provider: Chaparrita BALDERAS, pre-term labor, 8 [address] third [facility] [place], 700 1522, [facility], ion of other high , [facility] [place] Dr ROTH, risk pregnancies, 120, Benji 120, [id number], third Khanh Cassidy, trimesterPrevious [place]OTH, tel: Low Transverse [phone]. C-Ltpwxoq42 weeks , [place]. tel: gestation of tel: [phone] [facility] Suprvsn of preg w Mar-2 Sha Referring In Womens Ultrasound history of 1-201 Fang. Provider: Health PA, pre-term labor, 8 [address] third [facility] [place], 700 1522, trimesterGestatio [facility] [place], nal htn w/o , [facility] Dr ROTH, significant 120, Benji 120, , proteinuria, Khanh Cassidy, [place] third [place] ROTH, tel: trimesterPrevious [phone]. Low Transverse , [place]. tel: C-Ozsxrgx33 weeks tel: [phone] gestation of [id number] [facility] Supervision of Sha Referring In Womens other high risk 4-201 Fang. Provider: Health PA, pregnancies, 8 [address] second [facility] [place], 700 1522, trimesterPrevious [facility] [place], Low Transverse , [facility] Dr ROTH, C-SectionFrequenc 120, Benji 120, [id number], y of Khanh Cassidy, [id number] [place] ROTH, tel:+2 weeks gestation [phone]. of , [place]. tel: tel: [phone] [facility] Suprvsn of preg w b-0 Sha Referring In Womens history of 8-201 Fang. Provider: Health PA, pre-term labor, 8 [address] second [facility] [place], 700 [address], [place] [address], [facility] Dr ROTH, 120, Benji 120, , Khanh Cassidy, [place] ROTH, tel: [phone]. , [place]. tel: tel:[phone] Shahida Cassidy Suprvsn of preg w Sha Referring In Womens history of 1-201 Fang. Provider: Chaparrita BALDERAS, pre-term labor, 8 [address] Box [facility], 700 [address], triSupervision of [facility] [place], other high risk Dr, [facility] Dr ROTH, pregnancies, 120, Benji 120, [id number], second Khanh Cassidy, trimesterGestatnl [place] ROTH, tel: htn w/o [phone]. [facility] , [place]. tel: proteinuria, tel: [phone] second [phone] trimesterPrevious Low Transverse C-SectionEncounte r for suprvsn of normal , second zxaugjyhn18 weeks gestation of [facility] Suprvsn of preg w Sha Referring In Womens history of 5-201 Fang. Provider: Chaparrita BALDERAS, pre-term labor, 8 [address] [facility], [address], [place] [address] [address] Tulio, [facility] [place], 120, [place] , Khanh, [facility] 120, [place] Khanh ROTH, tel: [phone] [place], , [place]. [id number]. tel: tel: [phone] Shahida Cassidy Suprvsn of preg w Sha Referring In Womens history of 8-201 Fang. Provider: Chaparrita BALDERAS, pre-term labor, 8 [address] Box [facility], [address] 15[address], [place] [address], [facility] Dr ROTH, 120, Benji 120, [id number], Khanh Cassidy, [place] R[place], tel: [phone]. , [place]. tel: tel: [phone] Shahida Cassidy Suprvsn of preg w Sha Referring In Womens history of 1-201 Fang. Provider: Chaparrita BALDERAS, pre-term labor, 8 [address] PO Box [facility] [address], [place] [address], [facility] Dr ROTH, 120, Benji 120, , Khanh Cassidy, [place], [place], tel: [phone]. , [place]. tel: tel: [phone] Shahida Cassidy Suprvsn of preg w Reed-0 Sha Referring In Womens history of 4-201 Fang. Provider: Chaparrita BALDERAS, pre-term labor, 8 [address] second [facility] [place], 700 1522, triSupervision of [facility] [place], other high risk Dr, [facility] Dr ROTH, pregnancies, 120, Benji 120, , second Khanh Cassidy, trimesterPrevious [place], tel: Low Transverse [phone]. C-Fhytjvd15 weeks , [place]. tel: gestation of tel: [phone] [facility] Carbalbinale, Reed-0 Sha Referring In Womens unspecifiedSuperv 2-201 Fang. Provider: Chaparrita BALDERAS, ision of other [address] high risk [facility] [place], 700 1522, [facility] , [facility] Dr ROTH, weeks 120, Benji 120, , gestation of Khanh Cass[place], [place], tel: [phone]. , [place]. tel: tel: [phone] Shahida Cassidy Suprvsn of preg w Dec-2 Sha Referring In Womens history of 7-201 Fang. Provider: Chaparrita BALDERAS, pre-term labor, 7 [address] Box second [facility] [place], 700 1522, [facility] Dr Tulio, [facility] Dr ROTH, 120, Benji 120, , Khanh Cassidy, [place], [place], tel: [phone]. , [place]. tel: tel: [phone] Shahida Cassidy Supervision of Dec-2 Sha Referring In Womens other high risk 1-201 Fang. Provider: Chaparrita BALDERAS, pregnancies, 7 [address] second [facility] [place], 700 1522, trimesterGestatnl [facility] [place], htn w/o Dr, [facility] Dr ROTH, significant 120, Benji 120, , proteinuria, Khanh Cassidy, [place] second [place], [place], tel: trimesterPrevious [phone]. Low Transverse , [place]. tel: C-Swkaywk26 weeks tel: [phone] gestation of [id number] [facility] Suprvsn of preg w Dec-2 Sha Referring In Womens Ultrasound history of 1-201 Fang. Provider: Health ANDREY, pre-term labor, 7 [address] [facility], [address] [address], triSupervision of [facility] [place], other high risk Dr, [facility] Dr ROTH, pregnancies, 120, Benji 120, , second Khanh Cassidy, [place] trimesterPrevious [place], [place], tel: Low Transverse [phone]. C-Tesdsts93 weeks , [place]. tel: gestation of tel: [phone] [facility] Suprvsn of preg w Dec-2 Sha Referring In Womens history of 0-201 Fang. Provider: Chaparrita BALDERAS, pre-term labor, 7 [address] second [facility], [address], [place] [address], [facility] Dr ROTH, 120, Benji 120, , Khanh Cassidy, [place], [place], tel: [phone]. , [place]. tel: tel: [phone] [facility] Suprvsn of preg w Dec-1 Sha Referring In Womens history of 3-201 Fang. Provider: Chaparrita BALDERAS, pre-term labor, 7 [address] [facility], 700 15[address], [place] [address], [facility] Dr ROTH, 120, Benji 120, [id number], Khanh Cassidy, [place], [place], tel: [phone]. , [place]. tel: tel:+[phone] [facility] Suprvsn of preg w Dec-0 Sha Referring In Womens history of 6-201 Fang. Provider: Chaparrita BALDERAS, pre-term labor, 7 [address] second [facility] Medical Sha L, 1522, [facility] [place], , [facility] [place], 120, Center [id number], Khanh, [facility] 120, [place] Khanh ROTH, tel:[phone] [place], , [place]. [id number]. tel: tel: [phone] [facility] Suprvsn of preg w Nov-2 Sha Referring In Womens history of 9-201 Fang. Provider: Chaparrita BALDERAS, pre-term labor, 7 [address] second [facility] [place], 700 15[address], [facility]Supervision of [facility], other high risk Dr, [facility] Dr ROTH, pregnancies, 120, Benji 120, , second Khanh Cassidy, trimesterPrevious [place], [place], tel: Low Transverse [phone]. C-Teplhaz70 weeks , [place]. tel: gestation of tel: [phone] [facility] Suprvsn of preg w Nov-0 Sha Referring In Womens history of 6-201 Fang. Provider: Chaparrita BALDERAS, pre-term labor, 7 [address] Box first [facility] [place], 700 1522, [facility], ion of other high , [facility] Dr ROTH, risk pregnancies, 120, Benji 120, [id number], first Khanh Cassidy, trimesterPrevious [place] ROTH, tel: Low Transverse [phone]. C-Bkxznao86 weeks , [place]. tel: gestation of tel: [phone] [facility] Suprvsn of preg w Oct- Sha Referring In Womens history of 1-201 Fang. Provider: Chaparrita BALDERAS, pre-term labor, 7 [address] first [facility] [place], 700 1522, [facility], ion of other high , [facility] Dr ROHT, risk pregnancies, 120, Benji 120, [id number], first Khanh Cassidy, trimesterPrevious [place]OTH, tel:+2 Low Transverse [phone]. C-SectionEncntr , [place]. tel: screen for tel: [phone] infections w sexl [id number] mode of transmissEncounte r for screening for oth infec/parastc diseasesEncounter for screening of mother9 weeks gestation of [facility] Secondary Sep-2 Sha Referring In Womens amenorrheaEncount 2-201 Fang. Provider: Health PA, er for 7 [address] test, result [facility] [place], 700 1522, positive Center [address], [facility] Dr ROTH, 120, Benji 120, , Khanh Cassidy, [place], tel: [phone]. , [place]. tel: tel: [phone] Shahida Cassidy Recurrent Sep-1 Tang Referring In Womens loss 3-201 Selina. Provider: Health [place], [address] [facility] [place], 700 [address], [facility] [address], [facility] Dr ROTH, 120, Benji 120, [id number], Khanh Cassidy, [place], tel:+ [phone]. , [place]. tel: tel: [phone] Shahida Cassidy Secondary Sep-1 Clyde Referring In Womens oligomenorrheaRec 1-201 Selina. Provider: Health ANDREY, urrent 7 [address] lossEncounter for [facility] [place], 700 1522, test, [facility] [address], result positive , [facility] Dr ROTH, 120, Benji 120, , Khanh Cassidy, [place], tel: [phone]. , [place]. tel: tel: [phone] Shahida Cassidy Irregular Reed-3 Clyde Referring In Womens MensesEncntr for 0-201 Selina. Provider: Chaparrita BALDERAS, rn gynecology exam 7 [address] (general) [facility] [place], 700 1522, (routine) w [place] [address], [facility] Dr ROTH, findingsEncntr 120, Benji 120, , for rn gynecology exam Khanh Cassidy, (general) [place], tel: (routine) w/o abn [phone]. findingsPap Smear , [place]. tel: Screening, tel: [phone] CervixEncounter [id number] for test, result negative [facility] Complete or unsp Apr-1 Sha Referring In Womens spontaneous 4-201 Fang. Provider: Chaparrita BALDERAS, without 6 [address] complication [facility] [place], [address] 15[address], [place] [address], [facility] Dr ROTH, 120, Benji 120, , Khanh [place], [place], tel:[phone]. , [place]. tel: tel: [phone] [facility] Complete or unsp Apr-0 Sha In Womens spontaneous 6-201 Fang. Chaparrita BALDERAS, without 6 700 [address] Box complication Medical 1522, [place] [address], [facility] [place], 120, , [facility] [place], tel:[phone] , [place]. tel: [phone] [facility] Irregular Menses Apr-0 Sha In Womens 4-201 Fang. Chaparrita BALDERAS, [address] [place], [place], [address], , [facility] [place], tel:[phone] , [place]. tel: [phone] [facility] Complete or unsp Reed-2 Octavia Referring In Womens spontaneous 0-201 Katt. Provider: Chaparrita BALDERAS, without [address] complication Medical [place], [address], [facility] [place], 120, [place] 120, , [place], [place], [place], tel: [phone]. , [place]. tel: tel: [phone] [facility] Nicotine Reed-0 Octavia Referring In Womens dependence, other 6-201 Katt. Provider: Chaparrita BALDERAS, tobacco product, [address] in [facility], 15[address], [facility] [address] or unsp , [place], [place], spontaneous 120, [place], [id number], [place], [address]. [place] complicationEncnt [place], tel: tel: r for rn gynecology exam [phone] (general) , [place]. (routine) w tel: abnormal [phone] findingsPap Smear Screening, CervixPap Smear Screening, CervixEncounter for test, result positive [facility] Jul-0 Sha Referring In Womens 8-201 Fang. Provider: Chaparrita BALDERAS, [address] [facility], [facility], Center [address] [place], [place], [address], [employer], [id number], [place], [address]. [place], tel: tel: [phone] , [place]. tel: [phone] Family History Family Member Diagnosis Age At Onset No family history of Ovarian Cancer No family history of Venous Thrombosis Maternal Grandfather Lung Cancer No family history of Colon Cancer No family history of Uterine Cancer No family history of Breast Cancer No family history of Pulmonary Embolism Paternal Grandmother Cardiovascular Disease Mother Thyroid Disorder Maternal Grandmother Thyroid Disorder Immunizations Vaccine Date Status Comments Tdap completed Source: New Immunization Record Influenza, injectable, completed Source: New Immunization Record quadrivalent, preservative free, 3 yrs or older Payers Payer name Insurance type Covered green party ID Authorization(s) [employer] [place] [id number] [employer] [id number] [employer] [id number] [employer] [place] [id number] Social History Type Description Quantity Date Captured Unknown Vital Signs Date / Height Weight BMI Pulse Blood Temperature Respiratory Body Head BMI Time: Rate Pressure Rate Surface Circumference percentile Area Unknown Chief Complaint And Reason For Visit Unknown Chief Complaint And Reason For Visit Reason For Referral Reason For Referral Unknown Plan Of Care Date Type Action Status Goal Tobacco cessation counseling completed Goal Tobacco cessation counseling completed Goal Tobacco cessation counseling completed Goal Lifestyle education regarding completed diet Goal Lifestyle education regarding completed diet Goal Tobacco cessation counseling completed Goal Lifestyle education regarding completed diet Goal Tobacco cessation counseling completed Appointment Elsie Shultz BOOKED Appointment Elsie Shultz [facility] R C/S BOOKED Appointment Elsie Shultz BOOKED Future Order: Radiology Order Ultrasound OB Follow-up ([id number]) Ordered Future Order: Radiology Order Ultrasound OB, Transvaginal Ordered ([id number]) Future Order: Lab Order Pap Smear With HPV Reflex If Ordered ASCUS ([id number]) Future Order: Radiology Order Complete OB Ultrasound > 14 Ordered Weeks ([id number]) Future Order: Radiology Order Ultrasound OB Follow-up ([id number]) Ordered Future Order: Radiology Order Ultrasound OB, Transvaginal Ordered ([id number]) Future Order: Radiology Order Ultrasound OB, Transvaginal Ordered ([id number]) Future Order: Radiology Order Ultrasound OB Follow-up ([id number]) Ordered Date Type Problem Goal Intervention Status Start Date Unknown. History Of Present Illness Encounter Date Complaint History Of Present Illness This patient has no known history of present illness Functional Status Encounter Date Functional Assessment Cognitive Assessment Unknown Medications Administered Medication Instructions Dosage Effective Dates (start - stop) Status Comments Drug Treatment Unknown Instructions Date Instruction Additional Information HIV and other routine tests risk factors identified by history anticipated course of care nutrition and weight gain counseling, special diet toxoplasmosis precautions (cats / raw meat) sexual activity exercise indications for ultrasound influenza vaccine environmental / work hazards travel tobacco (ask, advise, assess, assist and arrange) use of any medications (including supplements, vitamins, herbs, OTC drugs) smoking counseling domestic violence seat belt use childbirth classes / hospital facilities hospital registration genetic testing new ob handbook risks Zika virus assessment & precautions Giving encouragement to exercise Related to Body mass index 40.0-44.9 Giving encouragement to exercise Related to Body mass index 40.0-44.9 Lifestyle education regarding diet Related to Body mass index 40.0-44.9 Giving encouragement to exercise Related to Body mass index 40.0-44.9 Lifestyle education regarding diet Related to Body mass index 40.0-44.9 Giving encouragement to exercise Related to Body mass index 39.0 - 39.9 Lifestyle education regarding diet Related to Body mass index 39.0-39.9
--- OUTSIDE RECORDS SUMMARY | 2017-06-18 10:15 | External Medical Summary | Continuity of Care Document ---
:1985 Author Organization [facility] Address [address] [place], [place] [id number] Phone Care Team Providers Name Role Phone Reji Wang MD, FAAFP Unavailable Unavailable Allergies, Adverse Reactions, Alerts Substance Reaction Severity Status No Known Drug Allergies Unknown Active Medications Medication Instructions Dosage Effective Dates Status Comments (start - stop) Aspir-81 81 mg take 1 tablet by oral 81 MG - Active tablet,delayed release route every day 17-alphahydroxy 1 injection weekly IM - Active Progesterone 250mg/ml (weeks 16-36 of Injection VIAL ) (unknown - Active strength) Tylenol 325 mg tablet take 3 tablet by ORAL 975 MG - Active route every 4 days as needed Problems Condition Effective Dates (start - stop) Clinical Status Irregular Menses Encntr for physician gynecologist exam (general) - (routine) w abnormal findings Encntr for physician gynecologist exam (general) (routine) w/o abn findings Pap Smear Screening, Cervix - Encounter for test, result - negative Suprvsn of preg w history of pre-term - labor, first trimester Supervision of other high risk - pregnancies, first trimester Previous Low Transverse - 13 weeks gestation of - Supervision of other [...] or unsp spontaneous without complication Encntr for physician gynecologist exam (general) - (routine) w abnormal findings [...] third trimester 35 weeks gestation of - Supervision of other [...] Uterine Leiomyoma - Active Procedures Procedure Date Unknown Results Test Name Date and Time Measure Units Reference Range Abnormal Flag Comments Unknown Advance Directives Directive Yes / No Effective Date File Name Unknown Encounters Encounter Practice Location Reason(s) Diagnoses Date Provider Care Team Description For Visit Members [facility] Gaytann of preg w Apr-1 Sha Referring In Womens history of 1-201 Fang. Provider: Chaparrita BALDERAS, pre-term labor, 8 [address] [facility] Medical [place], 700 1522, trimesterSupervis [facility], ion of other high Dr, [facility] Dr ROTH, risk pregnancies, 120, Benji 120, [id number], third Khanh [place], [place] trimesterPrevious [place] ROTH, tel: Low Transverse [phone]. C-Jlgwdvz89 weeks , [place]. tel: gestation of tel: [phone] [facility] Gaytann of preg w May-1 Sha Referring In Womens Ultrasound history of 1-201 Fang. Provider: Chaparrita BALDERAS, pre-term labor, 8 [address] [facility] [place], 700 1522, trimesterGestatio [facility], nal htn w/o , [facility] Dr ROTH, significant 120, Benji 120, [id number], proteinuria, Khanh [place], [place] third [place] ROTH, tel: trimesterMaternal [phone]. care for cervical , [place]. tel: incompetence, tel: [phone] third [id number] [phone] weeks gestation of [facility] Supervision of Apr-0 Sha Referring In Womens other high risk 4-201 Fang. Provider: Chaparrita BALDERAS, pregnancies, 8 [address] [facility] Medical [place], 700 1522, trimesterPrevious [facility], Low Transverse , [facility] Dr ROTH, C-SectionMaternal 120, Benji 120, [id number], care for cervical Khanh [place], [place] incompetence, [place] ROTH, tel:2 third [id number] [phone]. weeks gestation , [place]. tel: of tel: [phone] [facility] Suprfranciscon of preg w Apr-2 Sha Referring In Womens history of 8-201 Fang. Provider: Chaparrita BALDERAS, pre-term labor, 8 [address] third Medical [place], 700 1522, [facility] [place], ion of other high , [facility] Dr ROTH, risk pregnancies, 120, Benji 120, [id number], third Khanh [place], trimesterPrevious [place] ROTH, tel:+ Low Transverse [phone]. C-SectionMaternal , [place]. tel: care for cervical tel: [phone] incompetence, [phone] third trimester [facility] Suprvsn of preg w Mar-2 Sha Referring In Womens history of 2-201 Fang. Provider: Health PA, pre-term labor, 8 [address] third trimester Medical [place], 700 1522, [place] [address], [facility] Dr ROTH, 120, Benji 120, [id number], Khanh [place], [place] ROTH, tel: [phone]. , [place]. tel: tel: [phone] Shahida Cassidy Mar-2 Buster Referring In Womens 1-201 Jas. 700 Provider: Health ANDREY, 8 Medical [address] [place], 700 [address], [facility] [place], 120, [place] Dr ROTH, Khanh, Benji 120, [id number], Khanh ROTH, [id number] [place], tel: , [place]. [id number]. tel: tel: [phone] Cassidy Suprmahogany of preg w Mar-2 Sha Referring In Womens history of 1-201 Fang. Provider: Health PA, pre-term labor, 8 700 Aktt [address] third Medical [place], 700 1522, [facility] [place], hadley of other high , [facility] Dr ROTH, risk pregnancies, 120, Benji 120, [id number], third Khanh [place], trimesterPrevious [place] ROTH, tel:+2 Low Transverse [phone]. C-SectionMaternal , [place]. tel: care for cervical tel: [phone] incompetence, [phone] third trimester [facility] Suprvsn of preg w Mar-2 Sha Referring In Womens Ultrasound history of 1-201 Fang. Provider: Chaparrita BALDERAS, pre-term labor, 8 [address] third [email or web address] Medical [place], 700 1522, weeks gestation [facility], of , [facility] Dr ROTH, 120, Benji 120, [id number], Khanh [place], [place] ROTH, tel: [phone]. , [place]. tel: tel: [phone] [facility] Suprvsn of preg w Mar-1 Sha Referring In Womens history of 4-201 Fang. Provider: Chaparrita BALDERAS, pre-term labor, 8 [address] third Medical [place], 700 1522, [facility], ion of other high , [facility] Dr ROTH, risk pregnancies, 120, Benji 120, [id number], third Khanh [place], trimesterPrevious [place] ROTH, tel: Low Transverse [phone]. C-Hzpoyuk42 weeks , [place]. tel: gestation of tel: [phone] [facility] Suprvsn of preg w Mar-0 Sha Referring In Womens history of 7-201 Fang. Provider: Chaparrita BALDERAS, pre-term labor, 8 [address] third Medical [place], 700 1522, [facility], ion of other high , [facility] Dr ROTH, risk pregnancies, 120, Benji 120, [id number], third Khanh [place], trimesterPrevious [place] ROTH, tel: Low Transverse [phone]. C-SectionMaternal , [place]. tel: care for cervical tel: [phone] incompetence, [phone] third trimester [facility] Suprvsn of preg w Feb-2 Sha Referring In Womens history of 8-201 Fang. Provider: Chaparrita BALDERAS, pre-term labor, 8 [address] Box third Medical [place], 700 1522, trimesterPrevious [facility], Low Transverse , [facility] Dr ROTH, C-SectionMaternal 120, Benji 120, [id number], care for cervical Khanh [place], [place] incompetence, [place] ROTH, tel:+ third [phone]. trimesterPreterm , [place]. tel: labor without tel: [phone] delivery, third [phone] trimester [facility] Suprvsn of preg w Mar- Sha Referring In Womens history of 1-201 Fang. Provider: Health PA, pre-term labor, 8 [address] third Medical [place], 700 1522, trimesterSupervis [facility], ion of other high , [facility] Dr ROTH, risk pregnancies, 120, Benji 120, , third Khanh [place], [place] trimesterPrevious [place] ROTH, tel: Low Transverse [phone]. C-Vkenpck18 weeks , [place]. tel: gestation of tel: [phone] [facility] Suprfranciscon of preg w Sha Referring In Womens Ultrasound history of 1-201 Fang. Provider: Health PA, pre-term labor, 8 [address] third Medical [place], 700 1522, trimesterGestatio [facility], nal htn w/o , [facility] Dr ROTH, significant 120, Benji 120, , proteinuria, Khanh [place], [place] third [place] ROTH, tel: trimesterPrevious [phone]. Low Transverse , [place]. tel: C-Meaesah55 weeks tel: [phone] gestation of [phone] [facility] Supervision of Sha Referring In Womens other high risk 4-201 Fang. Provider: Health PA, pregnancies, 8 [address] second Medical [place], 700 1522, trimesterPrevious [facility], Low Transverse , [facility] Dr ROTH, C-SectionFrequenc 120, Benji 120, [id number], y of Khanh [place], [place] [id number] [place], [place], tel:2 weeks gestation [phone]. of , [place]. tel: tel: [phone] [facility] Suprvsn of preg w Mar-0 Sha Referring In Womens history of 8-201 Fang. Provider: Health ANDREY, pre-term labor, 8 [address] Box second [facility] [place], 700 1522, [facility] Dr [place], [facility] [place], 120, Benji 120, [id number], Khanh [place], [facility], tel: [phone]. , [place]. tel: tel: [phone] [facility] Suprvsn of preg w Mar- Sha Referring In Womens history of 1-201 Fang. Provider: Health ANDREY, pre-term labor, 8 700 [address] Box [facility] [place], 700 1522, triSupervision of [facility] [place], other high risk Dr, [facility] Dr ROTH, pregnancies, 120, Benji 120, , second Khanh [place], trimesterGestatnl [place], [place], tel: htn w/o [phone]. significant , [place]. tel: proteinuria, tel: [phone] second [phone] trimesterPrevious Low Transverse C-SectionEncounte r for suprvsn of normal , second ranykdkzp51 weeks gestation of [facility] Suprvsn of preg w Sha Referring In Womens history of 5-201 Fang. Provider: Health ANDREY, pre-term labor, 8 700 Fang [address] Box [facility] Medical Sha L, 1522, [place] [address] Dr [place], [facility] [place], 120, [place] [id number], Khanh [facility] 120, [place] Khanh ROTH, tel: [phone] [place], , [place]. [id number]. tel: tel: [phone] Shahida Cassidy Suprvsn of preg w Sha Referring In Womens history of 8-201 Fang. Provider: Chaparrita BALDERAS, pre-term labor, 8 [address] Box [facility] Medical [place], 700 1522, [place] [address], [facility] Dr ROTH, 120, Benji 120, , Khanh [place], [place] ROTH, tel: [phone]. , [place]. tel: tel: [phone] [facility] Tompkinsvsmacy of preg w Feb- Sha Referring In Womens history of 1-201 Fang. Provider: Chaparrita BALDERAS, pre-term labor, 8 [address] PO Box [facility] Medical [place], 700 1522, [place] [address], [facility] Dr ROTH, 120, Benji 120, , Khanh [place], [place] ROTH, tel:[phone]. , [place]. tel: tel: [phone] [facility] Suprfranciscon of preg w Feb- Sha Referring In Womens history of 4-201 Fang. Provider: Chaparrita BALDERAS, pre-term labor, 8 [address] Box second Medical [place], 700 1522, triSupervision of [place] [address] Antunez, other high risk , [facility] Dr ROTH, pregnancies, 120, Benji 120, , second Khanh [place]idy, trimesterPrevious [place], [place], tel: Low Transverse [phone]. C-Odrstmm56 weeks , [place]. tel: gestation of tel: [phone] [facility] Carbuncle, Sha Referring In Womens unspecifiedSuperv 2-201 Fang. Provider: Chaparrita BALDERAS, ision of other 8 [address] high risk Medical [place], 700 1522, pregnancies, [facility] [place], second , [facility] Dr ROTH, ijobgphrt78 weeks 120, Benji 120, , gestation of Khanh [place], [place] ROTH, tel: [phone]. , [place]. tel: tel: [phone] [facility] Suprvsn of preg w Dec-2 Sha Referring In Womens history of 7-201 Fang. Provider: Chaparrita BALDERAS, pre-term labor, 7 700 [address] PO Box [facility] Medical [place], 700 1522, [place] [address], [facility] Dr ROTH, 120, Benji 120, [id number], Khanh [place], [place] IRA, IRA, tel: [phone]. , [place]. tel: tel: [phone] [facility] Supervision of Dec-2 Sha Referring In Womens other high risk 1-201 Fang. Provider: Chaparrita BALDERAS, pregnancies, 7 [address] [facility] [place], 700 1522, trimesterGestatnl [facility] [place], htn w/o , [facility] Dr ROTH, significant 120, Benji 120, , proteinuria, Khanh [place], second IRA, IRA, tel: trimesterPrevious [phone]. Low Transverse , [place]. tel: C-Xkebeqa66 weeks tel: [phone] gestation of [phone] [facility] Suprfranciscon of preg w Dec-2 Sha Referring In Womens Ultrasound history of 1-201 Fang. Provider: Chaparrita BALDERAS, pre-term labor, 7 700 [address] PO Box [facility] [place], 700 1522, triSupervision of [facility] [place], other high risk Dr, [facility] Dr ROTH, pregnancies, 120, Benji 120, , second Khanh [place]idy, trimesterPrevious [place] ROTH, tel: Low Transverse [phone]. C-Zhgwvlb87 weeks , [place]. tel: gestation of tel: [phone] [facility] Suprvsn of preg w Dec-2 Sha Referring In Womens history of 0-201 Fang. Provider: Chaparrita BALDERAS, pre-term labor, 7 700 [address] PO Box [facility] [place], 700 1522, [facility] Dr [place], [facility] Dr ROTH, 120, Benji 120, [id number], Khanh Cassidy, [facility], [place], tel: [phone]. , [place]. tel: tel: [phone] [facility] Suprvsn of preg w Dec-1 Sha Referring In Womens history of 3-201 Fang. Provider: Chaparrita BALDERAS, pre-term labor, 7 700 [address] PO Box [facility], 700 1522, [facility] [place], , [facility] Dr ROTH, 120, Benji 120, [id number], Khanh [place], [place], [place], tel: [phone]. , [place]. tel: tel: [phone] [facility] Suprvsn of preg w Dec-0 Sha Referring In Womens history of 6-201 Fang. Provider: Chaparrita BALDERAS, pre-term labor, 7 700 Fang PO Box [facility] L, 1522, [facility] [place], , [facility] [place], 120, [place] [id number], Khanh, [facility] 120, Khanh ROTH, tel: [phone] [place], , [place]. [id number]. tel: tel: [phone] Shahida Cassidy Suprvsn of preg w Nov-2 Sha Referring In Womens history of 9-201 Fang. Provider: Chaparrita BALDERAS, pre-term labor, 7 700 [address]att PO Box [facility] [place], 700 1522, triSupervision of [facility] [place], other high risk Dr, [facility] Dr ROTH, pregnancies, 120, Benji 120, , [facility] Khanh [place], trimesterPrevious [place] ROTH, tel: Low Transverse [phone]. C-Awwuxhp95 weeks , [place]. tel: gestation of tel: [phone] [facility] Suprvsn of preg w Nov-0 Sha Referring In Womens history of 6-201 Fang. Provider: Chaparrita BALDERAS, pre-term labor, 7 [address] PO Box first Medical [place], 700 1522, [facility] [place], ion of other high , [facility] Dr ROTH, risk pregnancies, 120, Benji 120, , first Khanh [place], trimesterPrevious [place], tel: Low Transverse [phone]. C-Blsatpr52 weeks , [place]. tel: gestation of tel: [phone] [facility] Suprvsn of preg w Oct- Sha Referring In Womens history of 1-201 Fang. Provider: Health PA, pre-term labor, 7 [address] PO Box first Medical [place], 700 1522, [facility] [place], ion of other high , [facility] Dr ROTH, risk pregnancies, 120, Benji 120, , first Khanh [place], trimesterPrevious [place] ROTH, tel: Low Transverse [phone]. C-SectionEncntr , [place]. tel: screen for tel: [phone] infections w sexl [phone] mode of transmissEncounte r for screening for oth infec/parastc diseasesEncounter for screening of mother9 weeks gestation of [facility] Secondary Sep-2 Sha Referring In Womens amenorrheaEncount 2-201 Fang. Provider: Chaparrita BALDERAS, er for 7 [address] PO Box test, result Medical [place], 700 1522, positive [place] [address], [facility] Dr ROTH, 120, Benji 120, , Khanh [place], [place] ROTH, tel: [phone]. , [place]. tel: tel: [phone] [facility] Recurrent Sep-1 Tang Referring In Womens loss 3-201 Selina. Provider: Chaparrita BALDERAS, 7 [address] PO Box Medical [place], 700 1522, [place] [address], [facility] Dr ROTH, 120, Benji 120, , Khanh [place], [place] ROTH, tel: [phone]. , [place]. tel: tel: [phone] [facility] Secondary Sep-1 Tang Referring In Womens oligomenorrheaRec 1-201 Selina. Provider: Chaparrita BALDERAS, urdayami 7 [address] Box lossEncounter for Medical [place], 700 1522, test, [facility] [place], result positive , [facility] Dr ROTH, 120, Benji 120, , Khanh [place], [place], [place], tel: [phone]. , [place]. tel: tel: [phone] [facility] Irregular Reed-3 Tang Referring In Womens MensesEncntr for 0-201 Selina. Provider: Chaparrita BALDERAS, physician gynecologist exam 7 [address] PO Box (general) Medical [place], 700 1522, (routine) w [place] [address] Antunez, carol Fernandez, [facility] Dr ROTH, findingsEncntr 120, Benji 120, , for physician gynecologist exam Khanh [place], (general) [place], [place], tel: (routine) w/o abn [phone]. findingsPap Smear , [place]. tel: Screening, tel: [phone] CervixEncounter [id number] for test, result negative [facility] Complete or unsp Apr-1 Sha Referring In Womens spontaneous 4-201 Fang. Provider: Chaparrita BALDERAS, without 6 [address] PO Box complication Medical [place], 700 1522, [place] [facility] Dr [place], [facility] [place], 120, [place] 120, [id number], Khanh [place], [place], [place], tel: [phone]. , [place]. tel: tel: [phone] [facility] Complete or unsp Apr-0 Sha In Womens spontaneous 6-201 Fang. Chaparrita BALDERAS, without 6 700 PO Box complication Medical 1522, [place] Dr [place], [place], 120, [id number], Khan[place], [place], tel: [phone] , [place]. tel: [phone] [facility] Irregular Menses Apr-0 Sha In Womens 4-201 Fang. Health PA, 6 700 PO Box Medical [address], Center Dr [place], [place], 120, [id number], [place], [place], tel: [phone] , [place]. tel: [phone] [facility] Complete or unsp Reed-2 [place] Referring In Womens spontaneous 0-201 Katt. Provider: Health PA, without 6 700 Katt PO Box complication Medical [place], 700 1522, [place] [address], [facility] [place], 120, [place] 120, [id number], Khanh [place], [place], [place], tel: [phone]. , [place]. tel: tel: [phone] [facility] Nicotine Reed-0 [place] Referring In Womens dependence, other 6-201 Katt. Provider: Health ANDREY, tobacco product, 6 700 Sarah PO Box in [facility], 1522, [facility] [address] [place], or unsp , [place], spontaneous 120, [place], , [place], [address]. [place] complicationEncnt [place], tel: tel: r for physician gynecologist exam [phone] (general) , [place]. (routine) w tel: abnormal [phone] findingsPap Smear Screening, CervixPap Smear Screening, CervixEncounter for test, result positive [facility] Cornel-0 Sha Referring In Womens 8-201 Fang. Provider: Chaparrita BALDERAS, 1 700 Sarah [address] [facility], 1522, Center [address] [place], [place], 120, [place], , [place], [address]. [place], tel: tel: [phone] , [place]. tel: [phone] Family History Family Member Diagnosis Age At [...] older Payers Payer name Insurance type Covered republican ID Authorization(s) BC Out Of State [id number] [facility] [id number] [facility] [id number] BS Out Of [facility] [id number] Social History Type Description Quantity Date Captured Alcohol Use Details No Caffeine Use Details Unknown Tobacco Use Status Smoking Status Current every day smoker Vital Signs Date / Height Weight BMI [...] Appointment Elsie Shultz BOOKED Appointment Elsie Shultz BOOKED Appointment Elsie Shultz BOOKED Appointment Elsie Shultz [facility] [place] C/S BOOKED Future Order: Lab Order Pap Smear With HPV Reflex If Ordered ASCUS ([id number]) Future Order: Radiology Order Complete OB Ultrasound > 14 Ordered Weeks ([id number]) Future Order: Radiology Order Ultrasound OB Follow-up ([id number]) Ordered Future Order: Radiology Order Ultrasound OB, Transvaginal Ordered ([id number]) Future Order: Radiology Order Ultrasound OB, Transvaginal Ordered ([id number]) Future Order: Radiology Order Ultrasound OB Follow-up ([id number]) Ordered Future Order: Radiology Order Ultrasound OB Follow-up ([id number]) Ordered Future Order: Radiology Order Ultrasound OB, Transvaginal Ordered ([id number]) Date Type Problem Goal Intervention Status Start [...] to Body mass index 39.0 - 39.9 Reed-06-2016 Lifestyle education regarding diet Related to Body mass index 39.0-39.9
[2017-06-18] MEDS ORDERED: CEFAZOLIN 1 G INJECTION IVP ONE (11:00)
[2017-06-18] MEDS ORDERED: LR 1,000 ML IV SCH (11:00)
[2017-06-18] MEDS ORDERED: CEFAZOLIN PREMIX (MC ONLY) 2 GM/50 ML BAG IV ONE (11:00)
--- NOTE | 2017-06-18 11:09 | Anesthesia Preoperative Report ---
Anesthesia Epidural/Spinal Rec - Date and Time Date: 06/18/17 Preoperative Diagnosis: Repeat Procedure: Plan: Spinal - Vital Signs /Para: P:1 - Medictaions & Allergies Inpatient Medications: Current Medications Citric Acid/Sodium Citrate (Oracit) 30 ml PO PREOP ONE Stop: 06/18/17 10:12 Famotidine/Sodium Chloride (Pepcid Premix) 20 mg in 50 mls @ 100 mls/hr IV PREOP ONE Stop: 06/18/17 10:40 Lactated Ringer's (Lactated Ringers) 1,000 mls @ 999 mls/hr IV .Q1H1M RONALD Allergies/Adverse Reactions: Allergies Allergy/AdvReac Type Severity Reaction Status Date / Time No Known Allergies Allergy Unverified 05/07/16 16:14 - Home Medications Home Medications: Home Medications Medication Instructions Recorded Confirmed Type NO ROUTINE MEDS #0 05/07/16 History Aspirin DAILY 06/02/17 History Vitamins DAILY 06/02/17 History - Medical History Respiratory: Reports: Asthma, Pneumonia (Dec 2010) Cardiovascular: Reports: Heart Murmur (, resolved) Gastrointestional: Reports: Other (stomach pain) Neuro/Musculoskeletal: Reports: Headaches Other History: Reports: Now - Surgical History HEENT Surgeries: Reports: Oral Surgery (wisdom teeth removed 1.5 years ago) GI Surgery/Treatments: Reports: Cholecystectomy (2016) Reproductive Surgery/Treatment: Reports: Section Anesthesia Reactions: None Hx Family Anesthesia Reaction: No History of Motion Sickness: No - Social History Smoking Status: Current every day smoker Packs per day: 0.5 Pack-years: 15 Second Hand Exposure: Yes Substance Use Type: does not use Alcohol Intake: former - Pertinent Findings Lab Data: CBC and BMP 06/18/17 10:43 EKG Rhythm: Normal Sinus Rhythm - Physical Exam Respiratory Exam: lungs clear Cardiovascular Exam: regular rate and rhythm - Airway Assessment Mallampati Score: II TMD: 2 Fingerbreadths Neck Extension: good Overall Assessment: may be difficult mask vent, may be difficult intubation - ASA ASA Score: 2 - Discussion Discussion: Discussed risks/options/alternatives of anesthesia and questions answered. Patient consents. Nursing pain assessment noted. Anesthesia Discussion: spouse Attestation Statement: Prior to the delivery of any anesthetic medication, I examined the patient, developed the plan, obtained the patient's consent and discussed the risk and benefits of the procedure with the patient/guardian.
[2017-06-18] MEDS ORDERED: BUPIVACAINE 0.75%/DEXTROSE 8.5% SPINAL 2 ML AMPULE IJ ONE (11:24)
[2017-06-18] MEDS ORDERED: FentaNYL 250 MCG/5 ML INJECTION ONE (11:41)
[2017-06-18] MEDS ORDERED: MORPHINE SULFATE PF 5mg/10ml INJ (Duramorph) ONE (11:41)
[2017-06-18] MEDS ORDERED: ONDANSETRON 4 MG/2 ML INJECTION ONE (11:45)
[2017-06-18 12:11] VITALS: BMI 44.6
[2017-06-18] MEDS ORDERED: NALOXONE 2 MG/2 ML INJECTION PFS IVP PRN (12:57)
[2017-06-18] MEDS ORDERED: ONDANSETRON 4 MG/2 ML INJECTION IVP PRN (12:57)
[2017-06-18] MEDS ORDERED: DiphenhydrAMINE 50 MG/ML INJECTION IVP PRN (12:57)
[2017-06-18] MEDS ORDERED: OXYTOCIN BOLUS BAG 30 UNIT/500 ML ML IV SCH (13:00)
[2017-06-18] MEDS ORDERED: METOCLOPRAMIDE 10mg/2ml INJECTION IVP PRN (13:27)
[2017-06-18] MEDS ORDERED: CALCIUM CARBONATE Chewable 500mg TABLET PO PRN (13:27)
[2017-06-18] MEDS ORDERED: DiphenhydrAMINE 25 MG CAPSULE PO PRN (13:27)
[2017-06-18] MEDS ORDERED: D5LR 1,000 ML IV SCH (13:27)
[2017-06-18] MEDS ORDERED: HYDROCORTISONE 2.5% CREAM 30gm RECTALLY PRN (13:27)
[2017-06-18] MEDS ORDERED: HYDROCODONE/APAP 5mg/325mg TABLET PO PRN (13:27)
[2017-06-18] MEDS ORDERED: SIMETHICONE 80 MG CHEWABLE TABLET PO PRN (13:27)
[2017-06-18] MEDS ORDERED: OXYTOCIN DRIP 30 UNIT/500 ML ML IV SCH (13:27)
[2017-06-18] MEDS: IBUPROFEN 800 MG TABLET PO PRN (16:29)
[2017-06-18] MEDS: SIMETHICONE 80 MG CHEWABLE TABLET PO SCH ×3 (16:52→22:02)
--- NOTE | 2017-06-18 20:43 | Operative Note ---
DATE OF SURGERY 06/18/2017 PREOPERATIVE DIAGNOSES Term , previous x 1. POSTOPERATIVE DIAGNOSES Term , previous x 1. PROCEDURE Repeat low transverse section. SURGEON Fang Dalton MD DAYCARE PROVIDER Giovanni Arora, DO ANESTHESIA Combo spinal/epidural by Ernesto Cardona CRNA EBL 800 mL DESCRIPTION OF PROCEDURE Ms. Shultz was brought to the OR and given regional analgesia to good effect. She was then placed on the OR table with left lateral displacement. The abdomen was prepped and draped in the usual sterile fashion. A Mccullough catheter had been placed to previous drain. A Pfannenstiel skin incision was then made with a sharp knife. This was carried through to fascia. Fascia was incised transversely. Fascia was then tented up. This was bluntly and sharply dissected free of rectus muscles. Rectus muscles were bluntly divided. Peritoneum was tented up and sharply entered. This was extended vertically. The bladder blade was inserted. Vesicouterine fold of peritoneum was tented up and incised transversely. The bladder flap was bluntly created. The bladder blade was reinserted. A low transverse uterine incision was made with a sharp knife. There was clear amniotic fluid. There was initially very copious bleeding that very quickly subsided. Baby was delivered in the vertex presentation and bulb suctioned on the abdomen and then delivered in total. Cord was doubly clamped and cut and the baby was given to Dr. Dillard and her team for care. This is a liveborn female with Apgars of 8/9/9. She weighed 8 pounds, 0.2 ounces. The placenta was then expressed intact. It had a normal configuration and normal-appearing three-vessel cord. The uterine cavity was swept clear of membranes and the uterus exteriorized. We then reapproximated the myometrial incision with a running locking 0-Monocryl. We inspected carefully for hemostasis - this was under good control. We then inspected uterus, tubes and ovaries - they were grossly normal and were returned to the abdominal cavity. We then reinspected our myometrial incision. We maintained good hemostasis from here out throughout the procedure, checking carefully and frequently for that. We reapproximated peritoneum with running nonlocking 2-0 Vicryl. We reapproximated fascia with a running nonlocking 0-Vicryl, then reapproximated skin edges with subcuticular style 3-0 undyed Vicryl. The wound was dressed with Steri-Strips and sterile dressings. Counts were correct postoperatively x 2. The urine initially was pink upon placement of a Mccullough but was clearing and we were able to see the bladder throughout the procedure well below our area of operation. At the time of this dictation mom and baby are both doing well. Ms. Shultz is being transferred to recovery. She is in stable condition. VALENTIN
[2017-06-19] MEDS: IBUPROFEN 800 MG TABLET PO PRN ×3 (03:09→19:35)
[2017-06-19] MEDS: ACETAMINOPHEN 500 MG TABLET PO PRN ×3 (03:10→19:36)
--- NOTE | 2017-06-19 08:53 | OB/GYN Progress Note ---
OB-PP Progress Note - General POD:: POD1 Maternal Group B Strep: Negative Maternal blood type: A+ Maternal Rubella Status: Immune - Subjective Date: 06/19/17 Lochia: Minimal Pain: controlled Voiding: voiding Nausea or Vomiting Present: No - Objective Vital Signs: Last Vital Signs Temp 98.1 F 06/19/17 03:15 Pulse 79 06/19/17 03:15 Resp 16 06/19/17 03:15 BP 132/79 06/19/17 03:15 Pulse Ox 99 06/19/17 03:15 Urine Output: good General: alert and oriented Abdomen: fundus firm, non-tender Incision: dry, dressed Extremities: non-tender Laboratory: Laboratory Results - last 24 hr 06/18/17 06/18/17 06/19/17 10:43 10:44 07:31 WBC 8.3 9.3 RBC 4.18 3.86 L Hgb 11.8 L 10.7 L Hct 35.9 L 32.7 L MCV 85.9 84.7 MCH 28.2 27.7 MCHC 32.9 32.7 RDW Std Deviation 43.6 43.3 Plt Count 178 168 MPV 10.5 10.6 Immature Gran % (Auto) 0.2 Neut % (Auto) 73.0 H Lymph % (Auto) 19.4 L Leake % (Auto) 5.7 Eos % (Auto) 1.6 Baso % (Auto) 0.1 Neut # (Auto) 6.1 Lymph # (Auto) 1.6 Leake # (Auto) 0.5 Eos # (Auto) 0.1 Baso # (Auto) 0.0 Abs Immat Gran (auto) 0.02 Blood Type A Positive Antibody Screen Negative - Assessment Assessment: SP, Repeat C/S - Plan Plan: routine care
[2017-06-19] MEDS ORDERED: DOCUSATE CALCIUM 240 MG CAPSULE PO SCH (09:00)
[2017-06-19] MEDS: SIMETHICONE 80 MG CHEWABLE TABLET PO SCH ×3 (11:18→19:36)
[2017-06-20] MEDS: SIMETHICONE 80 MG CHEWABLE TABLET PO SCH (01:01)
[2017-06-20] MEDS: IBUPROFEN 800 MG TABLET PO PRN (03:21)
[2017-06-20 03:53] VITALS: BP 126/73; PULSE 82; RESP 16; TEMP 98.3; O2SAT 98
--- NOTE | 2017-06-20 07:29 | Progress Note ---
OB PP Progress Note Free Text - Date Date: 06/20/17 - Progress Note Progress Note: vss af doing well desires dc declines rx meds instructions given f/u 1 wk q&a-krb
== END 2017-06-20 10:55 | disposition home or self-care (01) | DRG 765 ==
LOC: MC 10:00
PROVIDERS: ADMIT Obstetrics & Gynecology; ATTEND Obstetrics & Gynecology